=== PATIENT | female | born 1970 | race Hispanic/Latino ===

== ENCOUNTER → 2017-09-09 | Outpatient (CLI) | payer OTHER ==
[~2017-09-09] MED LIST: FENOFIBRATE160 MG PO; GLIMEPIRIDE1 MG PO; METFORMIN HCL1000 MG PO; METOPROLOL SUCC25 MG PO; SINCALIDE 3 MCG/VIAL INJ ONE
--- NOTE | 2017-09-09 12:13 | Diagnostic Imaging Report ---
PROCEDURE:US GALLBLADDER COMPARISON:None. INDICATIONS:RUQ Pain TECHNIQUE: Jacques-scale and color doppler transverse and longitudinal images of the right upper quadrant of the abdomen were obtained. FINDINGS: Exam limited by patient's body habitus and overlying bowel gas. Liver: 15.0 cm in right mid-clavicular line. Increased echogenicity. No masses. Main portal vein: 1.1 cm, hepatopetal flow Gallbladder: No stones, sludge, wall thickening, or pericholecystic fluid. Common Bile Duct: 0.4 cm Sonographic Lovelace's sign: Negative Right kidney: 11.4 cm. Normal echogenicity. No solid masses or hydronephrosis. Pancreas: The visualized portions of the neck and proximal body are unremarkable. Inferior vena cava: Patent Aorta: Within normal limits Ascites: None in the right upper quadrant of the abdomen. CONCLUSION: 1. Liver size in the upper limit of normal. Increased hepatic echogenicity, consistent with fatty infiltration. No focal lesions. 2. No sonographic evidence of cholelithiasis or cholecystitis. Harjinder Mariano M.D. Dictated by: Harjinder Mariano M.D. on 09/09/2017 at 12:21 Electronically approved by: Harjinder Mariano M.D. on 09/09/2017 at 12:21
--- NOTE | 2017-09-09 16:03 | Diagnostic Imaging Report ---
Hepatobiliary Scan with Gallbladder Ejection Fraction Clinical information: 46 F with chronic RUQ abdominal pain Technique: Following intravenous administration of 6.2 millicuries of Tc-99m mebrofenin, dynamic images of the abdomen in the anterior projection were obtained through 50 minutes. Sincalide (CCK analog) 2.0 micrograms was administered intravenously over 30 minutes with additional imaging for determination of gallbladder ejection fraction. Discussion: Perfusion of the liver is normal. Extraction of tracer by the liver parenchyma is normal. Tracer appears promptly within the biliary tract. The gallbladder begins to fill by 32 minutes post injection of tracer and fills adequately. Tracer is seen in the small bowel by 10 minutes. The gallbladder ejection fraction with sincalide is 5% (normal greater than 40%). Impression: 1. Filling of the gallbladder excludes acute cystic duct obstruction/acute cholecystitis. 2. The decreased gallbladder ejection fraction of 5% supports the clinical diagnosis of chronic cholecystitis/gallbladder dyskinesia. Signed by: Dr. Jojo Contreras M.D. on 09/09/2017 4:00 PM
== END ==
LOC: US 09:56
PROVIDERS: ATTEND Internal Medicine Gastroenterology
DX: R10.11 Right upper quadrant pain (principal); R14.0 Abdominal distension (gaseous)
CPT/HCPCS: 76705; 78227; A9537; J2805

== ENCOUNTER 2018-05-02 21:30 | Emergency (ER) | payer OTHER ==
[~2018-05-02] VITALS: Ht 165.1 cm; Wt 87.5 kg
[~2018-05-02 21:30] MED LIST changes: -SINCALIDE 3 MCG/VIAL INJ ONE
[2018-05-02 23:41] VITALS: BP 144/79
[2018-05-02] MEDS ORDERED: DICYCLOMINE HCL20 MG PO (23:41)
== END 2018-05-03 | disposition home or self-care (01) ==
LOC: ER 21:30
DX: R10.11 Right upper quadrant pain (principal); I10 Essential (primary) hypertension; E11.9 Type 2 diabetes mellitus without complications; E78.5 Hyperlipidemia, unspecified; K21.9 Gastro-esophageal reflux disease without esophagitis; K76.0 Fatty (change of) liver, not elsewhere classified
CPT/HCPCS: 99283

== ENCOUNTER → 2018-06-30 | Outpatient (CLI) | payer OTHER ==
[~2018-06-30] MED LIST changes: +DICYCLOMINE HCL20 MG PO
--- NOTE | 2018-06-30 09:46 | Diagnostic Imaging Report ---
PROCEDURE:US ABDOMEN LIMITED COMPARISON:None. INDICATIONS:RUQ PAIN TECHNIQUE: Jacques-scale and color doppler transverse and longitudinal images of the right upper quadrant of the abdomen were obtained. FINDINGS: Liver: Measures 14.9 cm in right mid-clavicular line. Normal echogenicity. No masses. Main portal vein: 0.6 cm, hepatopedal Gallbladder: Status post cholecystectomy. CBD measures 0.3 cm. Right kidney: Measures 11.2 cm. Normal echogenicity. No solid masses or hydronephrosis. Multiple hyperechoic foci in the right kidney largest measuring 4 mm, 5 mm, and 6 mm. Pancreas: The visualized portions are unremarkable. Inferior vena cava: Patent Aorta: Not well visualized due to overlying bowel gas. Ascites: None in the right upper quadrant of the abdomen. CONCLUSION: Non-obstructive right sided renal stones, largest measuring 4-6 mm. Status post cholecystectomy. Dictated by: RUSLAN DE LA O M.D. on 06/30/2018 at 9:54 Electronically approved by: RUSLAN DE LA O M.D. on 06/30/2018 at 9:54
== END ==
LOC: US 08:49
PROVIDERS: ATTEND Internal Medicine Gastroenterology
DX: R10.11 Right upper quadrant pain (principal)
CPT/HCPCS: 76705

== ENCOUNTER → 2018-08-26 | Outpatient (CLI) | payer OTHER ==
[~2018-08-26] MED LIST changes: +IOPAMIDOL 370 MG/ML 200 ML INFUS..BTL INJ ONE; +SODIUM CHLORIDE 0.9% 50ML 50 ML ONE
[2018-08-26 09:19] LABS: BLOOD UREA NITROGEN 10 mg/dL (7-26); BUN/CREATININE RATIO 14 (6-25); EST GLOMERULAR FILTRATION RATE > 60 ML/MIN (60-)
--- NOTE | 2018-08-26 12:44 | Diagnostic Imaging Report ---
PROCEDURE: CT ABDOMEN AND PELVIS WITH CONTRAST TECHNIQUE: The abdomen and pelvis were scanned utilizing a multidetector helical scanner from the diaphragm to the lesser trochanter after the IV administration of 100 cc of Isovue 370 and the oral administration of water. Coronal and sagittal multiplanar reformations were obtained. Dose sparing technology was utilized. DLP: 542.42 mGy-cm COMPARISON: None. INDICATIONS: RIGHT ABDOMEN PAIN FINDINGS: LOWER THORAX: Normal. HEPATOBILIARY: There is a hyperdense lesion measuring 1.9 cm in the right lobe of the liver near the dome in segment 8 likely help desk representative of a flash fill hemangioma. Fatty infiltration of the liver. No biliary ductal dilatation. Clips in the gallbladder fossa. SPLEEN: No splenomegaly. PANCREAS: No focal masses or ductal dilatation. ADRENALS: No adrenal nodules. KIDNEYS/URETERS: No hydronephrosis, stones, or solid mass lesions. PELVIC ORGANS/BLADDER: Unremarkable. PERITONEUM / RETROPERITONEUM: No free air or fluid. Periumbilical hernia. LYMPH NODES: No lymphadenopathy. VESSELS: Minimal vascular calcification. GI TRACT: No distention or wall thickening. The appendix is normal. BONES AND SOFT TISSUES: Benign-appearing left femoral head subchondral cyst. IMPRESSION: 1. Hypervascular lesion within the dome of the liver is indeterminate but likely a flash fill hemangioma. 2. Further evaluation with liver mass protocol MRI is recommended. Abdifatah Carroll D.O. Dictated by: Abdifatah Carroll D.O. on 08/26/2018 at 12:53 Electronically approved by: Abdifatah Carroll D.O. on 08/26/2018 at 12:53
== END ==
LOC: CT 08:32
PROVIDERS: ATTEND Internal Medicine Gastroenterology
DX: R10.84 Generalized abdominal pain (principal)
CPT/HCPCS: 36415; 74177; 82565; 84520; Q9967

== ENCOUNTER → 2018-09-07 | Outpatient (CLI) | payer OTHER ==
[~2018-09-07] MED LIST changes: +GADOBENATE DIMEGLUMINE 1 ML IV ONE; -IOPAMIDOL 370 MG/ML 200 ML INFUS..BTL INJ ONE; -SODIUM CHLORIDE 0.9% 50ML 50 ML ONE
--- NOTE | 2018-09-07 11:20 | Diagnostic Imaging Report ---
EXAM: MRI of the abdomen with and without contrast. INDICATION: Liver mass seen on CT. COMPARISON: CT dated 08/26/2018 and ultrasound dated 06/30/2018. TECHNIQUE: Multiplanar and multisequence imaging was performed of the abdomen. T1 and T2-weighted images were obtained with and without contrast. T1-weighted in and [id number] , Dynamic, post gadolinium T1-weighted spoiled gradient echo scans. IV Contrast: 18 cc of MultiHance gadolinium Oral Contrast: None. Medications: None DISCUSSION: LOWER THORAX: Unremarkable. HEPATOBILIARY: 1.8 x 1.6 cm segment VII right hepatic lobe T2 hyperintense, T1 hypointense lesion (series 5, image 10), demonstrating intense arterial nodular enhancement, which becomes more homogeneous on delayed phase postcontrast images and follows blood pool intensity. No biliary ductal dilation. GALLBLADDER: Surgically absent. SPLEEN: No splenomegaly. PANCREAS: No focal masses or ductal dilatation. ADRENALS: No adrenal nodules KIDNEYS/URETERS: Kidneys enhance symmetrically. No hydronephrosis. No adrenal mass. Septated right midpole renal cyst, measuring 1.6 cm (series 7, image 18) and another tiny right inferior pole renal cyst. GI TRACT: Visualized bowel loops are unremarkable. No evidence of bowel obstruction. LYMPH NODES: No lymphadenopathy. VESSELS: Unremarkable. BONES: Unremarkable. SOFT TISSUES: Unremarkable. IMPRESSION: 1. 1.8 cm hepatic dome lesion with characteristics, most consistent with a hemangioma. 2. Mildly complex right renal midpole cyst with septation can be followed up in one year with renal ultrasound. Signed by: Dr. Mikey Todd MD on 09/07/2018 11:16 AM
== END ==
LOC: MRI 07:27
PROVIDERS: ATTEND Internal Medicine Gastroenterology
DX: R16.0 Hepatomegaly, not elsewhere classified (principal)
CPT/HCPCS: 74183; A9577